=== PATIENT | female | born 1960 | race Caucasian/White ===

== ENCOUNTER → 2021-04-22 | Day surgery (SDC) | payer MEDICAID ==
[~2021-04-22] MED LIST: Albuterol 0.083% 2.5 MG/3 ML Neb Soln NEB PRN; Ketamine 500 mg/10 ML MDV ONE; Lactated Ringers 1,000 ML IV SCH; Lactated Ringers 1,000 ML ONE; Lidocaine 1% 4 ML ONE; Lidocaine 1% with EPINEPHrine 1:100,000 10 ML MDV ONE; Lidocaine 1%/Sod Bicarbonate in NS 8.4% 1 ML Syringe IDERM PRN; Midazolam 1 MG/ML 2 ML SDV ONE; Ondansetron 4 MG/2 ML SDV ONE; Propofol 200 MG/20 ML SDV ONE; Scopolamine 1.5 MG Transdermal Patch TRDERM PRN; Sodium Chloride 0.9% 10 ML Syringe FLUSH PRN; Sodium Chloride 0.9% 50 ML SDV ONE; ceFAZolin 1 GM Vial ONE; fentaNYL 100 MCG/2 ML SDV ONE
--- NOTE | 2021-04-22 11:17 | PCM.PREANE ---
Preanesthetic Assessment - Procedure Proposed Procedure: nathan cath - Anesthesia/Transfusion/Family Hx Anesthesia History: No Prior Anesthesia Family History of Anesthesia Reaction: No Transfusion History: No Prior Transfusion(s) - Review of Systems General: Fatigue Pulmonary: Shortness of Breath (asthma), Cough Cardiovascular: Dyspnea on Exertion Gastrointestinal: Nausea (feels puky alot) Neurological: No Symptoms Other: Reports: Depression, Anxiety - Physical Assessment NPO Status Date: 04/21/21 NPO Status Time: 23:50 Vital Signs: Last Vital Signs Temp 98.4 F 04/22/21 10:20 Pulse 86 04/22/21 10:20 Resp 20 04/22/21 10:20 BP 184/131 H 04/22/21 10:20 Pulse Ox 98 04/22/21 10:49 Height: 5 ft 2 in Weight: 57.5 kg ASA Class: 3 Mental Status: Alert & Oriented x3 Airway Class: Mallampati = 1 Dentition: Reports: Broken Tooth/Teeth (very poor dentition), Caries Thyro-Mental Finger Breadths: 3 Mouth Opening Finger Breadths: 3 ROM/Head Extension: Full Lungs: Wheezing (bilateral lower lobes) Cardiovascular: Regular Rate, Regular Rhythm - Allergies Allergies/Adverse Reactions: Allergies Allergy/AdvReac Type Severity Reaction Status Date / Time No Known Allergies Allergy Verified 04/22/21 11:10 - Blood Blood Available: No - Acknowledgements Anesthesia Type Planned: MAC Pt an Appropriate Candidate for the Planned Anesthesia: Yes Alternatives and Risks of Anesthesia Discussed w Pt/Guardian: Yes Pt/Guardian Understands and Agrees with Anesthesia Plan: Yes Additional Comments: she has wheezes bilateral lower lobe after albuteral neb PreAnesthesia Questionnaire HEENT History: Reports: None Cardiovascular History: Reports: None Respiratory History: Reports: Asthma (takes over the counter meds) Gastrointestinal History: Reports: None Genitourinary History: Reports: None TECHNICAL MANAGER History: Reports: Other (See Below) Other OB/BYN History: night sweats Musculoskeletal History: Reports: None Neurological History: Reports: None Psychiatric History: Reports: None Endocrine/Metabolic History: Reports: None Hematologic History: Reports: None Immunologic History: Reports: None Oncologic (Cancer) History: Reports: Breast Dermatologic History: Reports: None - Past Surgical History Head Surgeries/Procedures: Reports: None HEENT Surgical History: Reports: None Cardiovascular Surgical History: Reports: None Respiratory Surgical History: Reports: None GI Surgical History: Reports: None Female Surgical History: Reports: None Male Surgical History: Reports: None Endocrine Surgical History: Reports: None Neurological Surgical History: Reports: None Musculoskeletal Surgical History: Reports: None Oncologic Surgical History: Reports: Biopsy of Breast Dermatological Surgical History: Reports: None - SUBSTANCE USE Tobacco Use Status *Q: Current Every Day Tobacco User Tobacco Use Within Last Twelve Months: Cigarettes, Other (See Below) (marijuana) Second Hand Smoke Exposure: Yes Days Per Week of Alcohol Use: 7 Number of Drinks Per Day: 4 (beer) Total Drinks Per Week: 28 Recreational Drug Use History: Yes Recreational Drug Type: Reports: Marijuana/Hashish - HOME MEDS Home Medications: Home Meds ALPRAZolam [Xanax] 0.5 mg PO Q8H PRN 04/19/21 [History] Aspirin 325 mg PO DAILY PRN 04/19/21 [History] OLANZapine [ZyPREXA] 10 mg PO ASDIRECTED 04/19/21 [History] Ondansetron [Zofran] 8 mg PO TID PRN 04/19/21 [History] Prochlorperazine Maleate [Compazine] 10 mg PO QID PRN 04/19/21 [History] dexAMETHasone [Decadron] 4 mg PO ASDIRECTED 04/19/21 [History] guaiFENesin/Ephedrine HCl [Primatene Asthma] 1 tab PO DAILY 04/19/21 [History] - CURRENT (IN HOUSE) MEDS Current Meds: Current Medications Albuterol (Albuterol 0.083% 2.5 Mg/3 Ml Neb Soln) 2.5 mg NEB ONETIME PRN PRN Reason: COPD Stop: 04/22/21 15:00 Last Admin: 04/22/21 10:49 Dose: 2.5 mg Documented by: Lactated Ringer's (Ringers, Lactated) 1,000 mls @ 125 mls/hr IV ASDIRECTED [facility] Stop: 04/22/21 23:00 Lidocaine/Sodium Bicarbonate (Lidocaine 1%/Sod Bicarbonate In Ns 8.4% 1 Ml Syringe) 0.25 ml IDERM ONETIME PRN PRN Reason: Prior to IV Start Stop: 04/22/21 18:00 Scopolamine (Scopolamine 1.5 Mg Transdermal Patch) 1.5 mg TRDERM ONETIME PRN PRN Reason: Nausea Stop: 04/22/21 15:00 Sodium Chloride (Sodium Chloride 0.9% 10 Ml Syringe) 10 ml FLUSH ASDIRECTED PRN PRN Reason: Keep Vein Open Stop: 04/22/21 18:00 Discontinued Medications Propofol (Propofol 200 Mg/20 Ml Sdv) Confirm Administered Dose 200 mg .ROUTE .STK-MED ONE Stop: 04/22/21 08:35
--- NOTE | 2021-04-22 15:20 | PCM48HPAN ---
Post Anesthesia Note - EVALUATION WITHIN 48HRS OF ANESTHETIC Vital Signs in Normal Range: Yes Patient Participated in Evaluation: Yes Respiratory Function Stable: Yes Airway Patent: Yes Cardiovascular Function Stable: Yes Hydration Status Stable: Yes Pain Control Satisfactory: Yes Nausea and Vomiting Control Satisfactory: Yes Mental Status Recovered: Yes Vital Signs: Last Vital Signs 1512 126/99 96 RA 85 20 97.6 Temp 36.9 C 04/22/21 10:20 Pulse 87 04/22/21 12:20 Resp 18 04/22/21 12:20 BP 146/92 H 04/22/21 12:20 Pulse Ox 97 04/22/21 12:20
--- NOTE | 2021-04-22 15:25 | CR ---
Chest: Multiple fluoroscopic spot views were obtained of the chest utilizing C-arm device. Findings: Study shows placement of a Port-A-Cath on the left side. Tip of the Port-A-Cath terminates within the superior vena cava near the right atrial junction. No additional abnormality is seen. Fluoroscopy time given as 30.7 seconds. Impression: 1. Study showing placement of Port-A-Cath. Diagnostic code #2
--- NOTE | 2021-04-22 16:01 | PROC ---
DATE OF OPERATION: 04/22/2021 SURGEON: Joy Grimes MD PREOPERATIVE DIAGNOSIS: Need for Port-A-Cath. PROCEDURE: Port-A-Cath placement through the left subclavian artery. ANESTHESIA: Monitored anesthesia care with local anesthetic consisting of 1% lidocaine, total of 60 mL used. ESTIMATED BLOOD LOSS: 30 mL. COMPLICATIONS: None. INDICATION AND CONSENT: Ms. Reynolds is a 60-year-old female with breast cancer. The patient is scheduled to undergo chemotherapy. Therefore, she was sent to me for port placement. I talked with the patient, discussed risks, benefits, and alternatives, and informed consent was obtained. DESCRIPTION OF PROCEDURE: The patient was taken to the procedure room, placed in supine position. The patient had difficulty lying flat; therefore, her head was slightly elevated. Despite placing the shoulder roll, the patient's position remained slightly elevated because of intolerance to being flat and hyperextension of the neck. Therefore, we began the procedure by using ultrasound to find the internal jugular. We noted the internal jugular. This was small in caliber and easily collapsible with minimal force and with inspiration. The patient was placed in slight Trendelenburg position to help with this, but still the vein was very collapsible. We attempted to venipuncture after injecting local anesthetic in the left neck soft tissues, left neck. However, after getting into the vein, we had a very difficult time threading the guidewire. We tried to thread the wire, but the wire kept curling and not going easily. Therefore, several separate venipunctures of the left internal jugular were attempted, probably total of 7 cannulations at different sites, but the wire would not go through. Therefore, we decided not to proceed with left internal jugular. We attempted to cannulate the left subclavian. We attempted using anatomic landmarks twice without success. We then employed on the ultrasound and we were able to cannulate the left subclavian vein. We were able to thread the guidewire through without any resistance, and with the assistance of fluoroscopy, we were able to see the guidewire and go into the right ventricle. Therefore, at this point, we proceeded with creating the pocket on the left chest for the port and tunneling the catheter in the subcutaneous tissue and placing the dilator and peel-away sheath into the vessel under the guidance of fluoroscopy. Then, we were able to place the catheter into the distal SVC without any problems. The catheter at the end we were able to inject enteral blood without any problems. The port site was sutured in place with 3-0 Vicryl in 2 layers and Dermabond applied. The cannulation site in the left chest was also sutured with 3-0 Vicryl stitch and Dermabond applied. The needle stick sites in the left neck were examined and there was no hematoma. There was slight bruising around these areas, other than that everything was normal. The patient will be taken to Recovery and we will obtain a chest x-ray to make sure there is no injury to the lung or other sites. The patient will be allowed to go home if everything is good. The patient will follow up with Dr. Sousa in clinic. TOM /[id number] MTDD
--- NOTE | 2021-04-22 16:03 | CR ---
Chest: Portable view of the chest is obtained. Comparison: Prior procedural study performed earlier on the same day (2:42 PM) Left-sided infusion port is seen. Tip of the Port-A-Cath lies within the superior vena cava close to the right atria. Thick area of atelectasis is seen within the right lung. Lungs otherwise are clear. No pneumothorax is seen. Heart size and mediastinum are normal. No acute osseous abnormality is appreciated. Impression: 1. Left-sided Port-A-Cath as described above. 2. Thick area of atelectasis within the right lung. 3. Nothing acute is otherwise seen. Diagnostic code #2
== END | disposition home or self-care (01) ==
LOC: JD.SDS 10:00
PROVIDERS: ATTEND Surgery
DX: C50.919 Malignant neoplasm of unspecified site of unspecified female breast (principal); J45.909 Unspecified asthma, uncomplicated; F17.210 Nicotine dependence, cigarettes, uncomplicated; Z98.890 Other specified postprocedural states; Z79.899 Other long term (current) drug therapy; Z79.82 Long term (current) use of aspirin
CPT/HCPCS: 36561; 71045; 76000; 94640; C1788; J0690; J1642; J2250; J2370; J2405; J2704; J3010; J7120; 00532